=== PATIENT | male | born 1990 | race Two or more races ===

== ENCOUNTER 2021-03-05 13:38 | Outpatient (CLI) | payer OTHER | END 2021-03-05 15:00 | disposition home or self-care (01) | LOC: LAB 13:38 | PROVIDERS: ATTEND Preventive Medicine Occupational Medicine | DX: Z03.818 Encounter for observation for suspected exposure to other biological agents ruled out (principal) ==

== ENCOUNTER 2021-03-12 02:00 | Outpatient (CLI) | payer OTHER | END 2021-03-12 02:30 | disposition home or self-care (01) | LOC: PPH VACUNA 02:00 | PROVIDERS: ATTEND Emergency Medicine Pediatric Emergency Medicine | DX: Z23 Encounter for immunization (principal) ==

== ENCOUNTER 2021-05-30 13:14 | Emergency (ER) | payer OTHER ==
[~2021-05-30] VITALS: Ht 177.8 cm; Wt 99.8 kg
== END 2021-05-30 15:14 | disposition home or self-care (01) ==
LOC: ER 13:14
DX: B34.9 Viral infection, unspecified (principal); Z20.822 Contact with and (suspected) exposure to COVID-19; Z88.6 Allergy status to analgesic agent; Z88.0 Allergy status to penicillin